=== PATIENT | male | born 1995 | race Two or more races ===

== ENCOUNTER 2018-10-06 19:07 | Emergency (ER) | payer SELFPAY ==
[~2018-10-06] VITALS: Ht 172.7 cm; Wt 59.0 kg
[2018-10-06 19:13] VITALS: BP 131/86
--- NOTE | 2018-10-06 19:22 | NUR ---
Dr. Mendez at bedside to evaluate pt.
[2018-10-06] MEDS ORDERED: CEPHALEXIN 500 MG CAPSULE PO ONE (19:30)
[2018-10-06] MEDS ORDERED: SULFAMETH./TRIMETHOPRIM DS 800MG/160MG TABLET PO ONE (19:30)
--- NOTE | 2018-10-06 20:12 | NUR ---
Pt back to room from shower.
[2018-10-06] MEDS ORDERED: SULFAMETH./TRIMETHOPRIM DS 800MG/160MG TABLET ONE (20:15)
[2018-10-06] MEDS ORDERED: CEPHALEXIN 500 MG CAPSULE ONE (20:15)
--- NOTE | 2018-10-06 20:33 | NUR ---
Patient/Caregiver given discharge instructions and they have confirmed that they understand the instructions. Patient ambulatory with steady gait.
== END 2018-10-06 20:38 | disposition home or self-care (01) ==
LOC: ED 20:32
DX: S71.001A Unspecified open wound, right hip, initial encounter (principal); S01.00XA Unspecified open wound of scalp, initial encounter; L03.011 Cellulitis of right finger; F17.200 Nicotine dependence, unspecified, uncomplicated; Z72.9 Problem related to lifestyle, unspecified; Z75.9 Unspecified problem related to medical facilities and other health care; X58.XXXA Exposure to other specified factors, initial encounter; Y93.89 Activity, other specified; Y92.89 Other specified places as the place of occurrence of the external cause; Y99.8 Other external cause status
CPT/HCPCS: 99283